=== PATIENT | male | born 1955 | race Caucasian/White ===

== ENCOUNTER 2024-05-27 14:30 | Inpatient (IN) ==
[2024-05-27] MEDS ORDERED: Dexamethasone IV 4 MG/ML VIAL 1 ml VIAL ONE (14:55)
[2024-05-27] MEDS: Dexamethasone IV 4 MG/ML VIAL 1 ml VIAL IM ONE (14:56)
[2024-05-27] MEDS ORDERED: Albuterol/Ipratropium NEB.SOL (2.5/0.5 MG) 3 ML NEB.SOLN ONE (14:57)
[2024-05-27 15:11] LABS: ABS Basophils 0.1 10^3/uL (0.0-0.1); ABS Eosinophils 0.5 10^3/uL (0.0-0.5); ABS Lymphocytes 1.3 10^3/uL (1.0-4.8); ABS Monocytes 1.3 10^3/uL (0.0-1.1); ABS Neutrophils 7.4 10^3/uL (1.5-7.6); ABS Nucleated RBC 0.01 10^3/ul; Eosinophil % 4.9 %; Hematocrit 44.2 % (38-53); Hemoglobin 15.1 g/dL (13.2-16.3); Mean Corpuscular Hemoglobin 32.2 pg (27-33); Mean Corpuscular Hgb Conc 34.3 g/dL (31-36); Mean Platelet Volume 6.1 fL (7.5-11.2); Nucleated Red Blood Cells % 0.1 %/100WBC (0.0-0.8); Platelet Count 336 10^3/uL (150-450); Red Cell Distribution Width 13.9 % (12-17); White Blood Count 10.5 10^3/uL (3.6-10.2)
[2024-05-27] MEDS: Albuterol/Ipratropium NEB.SOL (2.5/0.5 MG) 3 ML NEB.SOLN INH ONE (15:21)
[2024-05-27] MEDS: Furosemide 40 mg/4 ml IV VIAL IV SLOW PU ONE (15:23)
[2024-05-27 15:25] LABS: PO2 Arterial 235 mmHg (80-100)
[2024-05-27 15:37] LABS: PCO2 Arterial > 100 mmHg (35-45)
[2024-05-27 16:05] LABS: Albumin 4.8 g/dL (3.2-5.2); C Reactive Protein 6.94 mg/L (<8.01); Calcium 10.5 mg/dL (8.6-10.3); Creatinine, Serum 0.79 mg/dL (0.67-1.17); Globulin 2.4 g/dL (2-4); Potassium 4.4 mmol/L (3.5-5.0); Total Bilirubin 0.4 mg/dL (0.2-1.0); Total Protein 7.2 g/dL (6.4-8.9)
[2024-05-27 16:10] LABS: PO2 Arterial 140 mmHg (80-100)
[2024-05-27 16:19] LABS: Activated Partial Thrombo Time 30.7 seconds (26.0-38.0); INR 0.92 (0.85-1.14)
[2024-05-27 16:20] LABS: Urine Appearance Clear; Urine Bilirubin Negative (Negative); Urine Blood Negative (Negative); Urine Color Light-Yellow; Urine Glucose Negative (Negative); Urine Ketones Negative (Negative); Urine Nitrite Negative (Negative); Urine Protein Trace (Negative); Urine Specific Gravity 1.015 (1.002-1.030); Urine Urobilinogen Negative (Negative)
[2024-05-27 16:22] LABS: PCO2 Arterial > 100 mmHg (35-45)
[2024-05-27 16:44] LABS: High Sensitivity Troponin 1 Hr 49 pg/mL (<20)
[2024-05-27] MEDS: Iohexol 350 (CONTRAST) 500 ML MDV IV ONE (16:56)
[2024-05-27] MEDS ORDERED: Furosemide 40 mg/4 ml IV VIAL ONE (17:01)
[2024-05-27] MEDS: Furosemide 40 mg/4 ml IV VIAL IV ONE (17:04)
[2024-05-27] MEDS ORDERED: Etomidate 40 mg/20 ml (2 MG/ML) 20 ml VIAL (40 mg) ONE ×2 (17:29→17:46)
[2024-05-27] MEDS ORDERED: Succinylcholine 200 mg VIAL 20 mg/ml 10 ml VIAL (200 mg) ONE (17:30)
[2024-05-27] MEDS ORDERED: Rocuronium 50 mg VIAL 10 mg/ml 5 ml VIAL (50 mg) ONE ×3 (17:30→19:19)
[2024-05-27 17:37] LABS: PCO2 Arterial > 100 mmHg (35-45); PO2 Arterial 131 mmHg (80-100)
[2024-05-27] MEDS ORDERED: Norepinephrine 4 MG/250mL D5W 4,000 MCG/250 ML BAG IV ONE ×2 (17:37→20:02)
[2024-05-27] MEDS: Norepinephrine 4 MG/250mL NS 4,000 MCG/250 ML BAG IV SCH (17:40)
[2024-05-27] MEDS ORDERED: Midazolam 10 mg/10 ml VIAL 1 mg/ml 10 ml VIAL (10 mg) ONE (17:46)
[2024-05-27] MEDS: Midazolam 2 mg/2 ml VIAL 1 mg/ml 2 ml VIAL (2 mg) IV SLOW PU ONE ×5 (17:49→18:48)
[2024-05-27] MEDS ORDERED: EPINEPHrine SYR 0.1MG/ML 10 ml SYRINGE IV ONE ×2 (17:51→19:53)
[2024-05-27] MEDS: fentaNYL INFUSION 50 mcg/mL VL 2,500 MCG/50 ML VIAL IV SCH (18:38)
[2024-05-27] MEDS: Nitroglycerin 0.4 mg/hr PATCH (10 mg) TRANSDERM ONE (18:41)
[2024-05-27] MEDS: Rocuronium 50 mg VIAL 10 mg/ml 5 ml VIAL (50 mg) IV ONE (19:43)
[2024-05-27] MEDS: Midazolam 2 mg/2 ml VIAL 1 mg/ml 2 ml VIAL (2 mg) IV SLOW PU PRN (19:44)
[2024-05-27] MEDS: VASOPRESSIN IVPREMIX BTL 40 UNIT/100 ML BTL IV SCH (19:50)
[2024-05-27] MEDS ORDERED: Albuterol 2.5mg/3 ml (0.083%) NEB.SOLN INH ONE (19:57)
[2024-05-27] MEDS: Midazolam PREMIXBAG 1 MG/ML NS 100 ML IV SCH (20:06)
[2024-05-27] MEDS: Albuterol 2.5mg/3 ml (0.083%) NEB.SOLN INH SCH (20:13)
[2024-05-27] MEDS: Norepinephrine *QUAD STRENGTH* 16 mg/250 mL NS PREMIX (ICU ONLY) IV SCH (20:22)
[2024-05-27 20:50] LABS: Phosphorus 4.5 mg/dL (2.5-5.0)
[2024-05-27] MEDS: Magnesium Sulfate 2 gm BAG 2 GM/50 ML BAG IVPB ONE (20:51)
[2024-05-27] MEDS: Piperacillin/Tazobac 3.375 BAG 3.375 GM/100 ML BAG IV ONE (20:54)
[2024-05-27 21:39] LABS: PO2 Arterial 101 mmHg (80-100)
[2024-05-27 21:41] LABS: PCO2 Arterial 83 mmHg (35-45)
[2024-05-27] MEDS: Albuterol/Ipratropium NEB.SOL (2.5/0.5 MG) 3 ML NEB.SOLN INH PRN (22:08)
[2024-05-27] MEDS: Enoxaparin 40 MG/0.4 ML SYR SUBCUT SCH (22:43)
[2024-05-27] MEDS: Chlorhexidine MOUTHWASH 0.12% 15 ML UDC TOPICAL SCH (22:43)
[2024-05-27] MEDS: Famotidine IV 10 MG/ML 2 ml VIAL (20 mg) IV SLOW PU SCH (22:44)
[2024-05-27] MEDS: methylPREDNISolone SOD SUCC 40 mg/ml 1 ml VIAL IV SCH (22:44)
[2024-05-27] MEDS: Azithromycin 500 mg/250 ml NS 500 MG/250 ML BAG IVPB SCH (23:38)
[2024-05-28 00:01] LABS: PCO2 Arterial 71 mmHg (35-45); PO2 Arterial 104 mmHg (80-100)
[2024-05-28] MEDS: cefTRIAXone 1 gm/50 mL D5W 1 GM/50 ML BAG IV SCH (01:57)
[2024-05-28 07:46] LABS: PCO2 Arterial 61 mmHg (35-45); PO2 Arterial 128 mmHg (80-100)
[2024-05-28 08:07] LABS: Albumin 4.1 g/dL (3.2-5.2); Albumin/Globulin Ratio 1.6 (1-3); Calcium 9.8 mg/dL (8.6-10.3); Creatinine, Serum 0.95 mg/dL (0.67-1.17); Globulin 2.5 g/dL (2-4); Magnesium 2.3 mg/dL (1.9-2.7); Potassium 4.4 mmol/L (3.5-5.0); Total Bilirubin 0.5 mg/dL (0.2-1.0); Total Protein 6.6 g/dL (6.4-8.9); eGFR CKD-EPI 85.6 (>60)
[2024-05-28] MEDS ORDERED: Albuterol 2.5mg/3 ml (0.083%) NEB.SOLN INH PRN (08:38)
[2024-05-28 09:05] LABS: ABS Lymphocytes 0.4 10^3/uL (1.0-4.8); ABS Monocytes 0.7 10^3/uL (0.0-1.1); ABS Nucleated RBC 0.01 10^3/ul; Hemoglobin 13.9 g/dL (13.2-16.3); Lymphocyte % 6.2 %; Mean Corpuscular Hemoglobin 31.5 pg (27-33); Mean Corpuscular Hgb Conc 33.9 g/dL (31-36); Mean Platelet Volume 6.6 fL (7.5-11.2); Nucleated Red Blood Cells % 0.1 %/100WBC (0.0-0.8); Platelet Count 376 10^3/uL (150-450); Red Blood Count 4.41 10^6/uL (4.06-5.63); Red Cell Distribution Width 13.9 % (12-17); White Blood Count 6.1 10^3/uL (3.6-10.2)
[2024-05-28] MEDS: Albuterol/Ipratropium NEB.SOL (2.5/0.5 MG) 3 ML NEB.SOLN INH SCH (09:54)
[2024-05-28] MEDS: Propofol 10 mg/ml 100 ML BTL 1,000 MG/100 ML BTL IV SCH (10:14)
[2024-05-28] MEDS: Sulfur Hexaflouride MICROSPHR 25 MG VIAL IV PRN (10:58)
[2024-05-28] MEDS: Azithromycin 500 mg/250 ml NS 500 MG/250 ML BAG IVPB SCH (20:28)
[2024-05-29] MEDS: cefTRIAXone 1 GM Q24H (ADVAN) IVPB SCH (00:24)
[2024-05-29] MEDS ORDERED: cefTRIAXone 1 gm/50 mL D5W 1 GM/50 ML BAG IV SCH (01:00)
[2024-05-29 04:08] LABS: ABS Lymphocytes 0.4 10^3/uL (1.0-4.8); ABS Monocytes 0.9 10^3/uL (0.0-1.1); ABS Neutrophils 6.4 10^3/uL (1.5-7.6); Hematocrit 37.7 % (38-53); Hemoglobin 13.2 g/dL (13.2-16.3); Lymphocyte % 5.1 %; Mean Corpuscular Hemoglobin 32.1 pg (27-33); Mean Corpuscular Volume 91.5 fL (80-97); Mean Platelet Volume 6.1 fL (7.5-11.2); Platelet Count 313 10^3/uL (150-450); Red Blood Count 4.12 10^6/uL (4.06-5.63); White Blood Count 7.7 10^3/uL (3.6-10.2)
[2024-05-29 04:29] LABS: Albumin 3.7 g/dL (3.2-5.2); Albumin/Globulin Ratio 1.6 (1-3); Calcium 9.2 mg/dL (8.6-10.3); Creatinine, Serum 0.82 mg/dL (0.67-1.17); Globulin 2.3 g/dL (2-4); Magnesium 2.2 mg/dL (1.9-2.7); Potassium 4.4 mmol/L (3.5-5.0); Total Bilirubin 0.4 mg/dL (0.2-1.0); eGFR CKD-EPI 93.9 (>60)
[2024-05-29] MEDS: methylPREDNISolone SOD SUCC 40 mg/ml 1 ml VIAL IV SCH ×2 (09:32→18:17)
[2024-05-29] MEDS: Albuterol/Ipratropium NEB.SOL (2.5/0.5 MG) 3 ML NEB.SOLN INH SCH (11:09)
[2024-05-29] MEDS ORDERED: Lisinopril/HCTZ 20/25 TAB (NF) PO SCH (19:00)
[2024-05-30 03:57] LABS: ABS Lymphocytes 0.4 10^3/uL (1.0-4.8); ABS Monocytes 0.6 10^3/uL (0.0-1.1); ABS Neutrophils 8.2 10^3/uL (1.5-7.6); Hematocrit 36.8 % (38-53); Hemoglobin 12.6 g/dL (13.2-16.3); Lymphocyte % 4.1 %; Mean Corpuscular Hgb Conc 34.2 g/dL (31-36); Mean Corpuscular Volume 93.6 fL (80-97); Mean Platelet Volume 6.2 fL (7.5-11.2); Platelet Count 248 10^3/uL (150-450); Red Blood Count 3.93 10^6/uL (4.06-5.63); Red Cell Distribution Width 14.1 % (12-17); White Blood Count 9.2 10^3/uL (3.6-10.2)
[2024-05-30 04:07] LABS: ALT 28 U/L (7-52); Albumin/Globulin Ratio 1.7 (1-3); Alkaline Phosphatase 66 U/L (35-149); Anion Gap 5 mmol/L (2-16); Blood Urea Nitrogen 27 mg/dL (6-24); CO2 Carbon Dioxide 40 mmol/L (22-32); Calcium 9.4 mg/dL (8.6-10.3); Chloride 91 mmol/L (101-111); Creatinine, Serum 0.65 mg/dL (0.67-1.17); Globulin 2.4 g/dL (2-4); Glucose 120 mg/dL (70-100); Sodium 136 mmol/L (135-145); Total Bilirubin 0.6 mg/dL (0.2-1.0); Total Protein 6.4 g/dL (6.4-8.9); eGFR CKD-EPI 100.7 (>60)
[2024-05-30] MEDS: Albuterol/Ipratropium NEB.SOL (2.5/0.5 MG) 3 ML NEB.SOLN INH SCH ×2 (11:06→11:43)
[2024-05-31] MEDS: cefTRIAXone 1 gm/50 mL D5W 1 GM/50 ML BAG IV SCH (00:58)
[2024-05-31 05:09] LABS: ABS Lymphocytes 0.7 10^3/uL (1.0-4.8); ABS Neutrophils 6.9 10^3/uL (1.5-7.6); Hematocrit 41.4 % (38-53); Hemoglobin 14.1 g/dL (13.2-16.3); Lymphocyte % 8.5 %; Mean Corpuscular Hemoglobin 31.6 pg (27-33); Mean Corpuscular Hgb Conc 33.9 g/dL (31-36); Mean Corpuscular Volume 93.1 fL (80-97); Mean Platelet Volume 6.1 fL (7.5-11.2); Platelet Count 272 10^3/uL (150-450); Red Blood Count 4.45 10^6/uL (4.06-5.63); White Blood Count 8.6 10^3/uL (3.6-10.2)
[2024-05-31] MEDS: Albuterol/Ipratropium NEB.SOL (2.5/0.5 MG) 3 ML NEB.SOLN INH SCH (05:20)
[2024-05-31 05:49] LABS: Calcium 9.5 mg/dL (8.6-10.3); Creatinine, Serum 0.67 mg/dL (0.67-1.17); Magnesium 1.9 mg/dL (1.9-2.7); Phosphorus 4.4 mg/dL (2.5-5.0); Potassium 4.6 mmol/L (3.5-5.0); eGFR CKD-EPI 99.8 (>60)
[2024-05-31] MEDS: methylPREDNISolone SOD SUCC 40 mg/ml 1 ml VIAL IV SCH (08:15)
[2024-05-31] MEDS: Benzocaine/Menthol LOZ PO PRN (22:00)
[2024-06-01] MEDS: Albuterol/Ipratropium NEB.SOL (2.5/0.5 MG) 3 ML NEB.SOLN INH SCH (07:02)
[2024-06-01] MEDS ORDERED: BUDESONIDE INH SCH (11:30)
[2024-06-01] MEDS ORDERED: [UNRECOGNIZED DRUG - OTHER] INH SCH (11:30)
[2024-06-01] MEDS: Mometasone 220 MCG MDI INH SCH (19:24)
[2024-06-01] MEDS ORDERED: Albuterol/Ipratropium NEB.SOL (2.5/0.5 MG) 3 ML NEB.SOLN INH PRN (19:29)
[2024-06-02 05:44] LABS: ABS Eosinophils 0.1 10^3/uL (0.0-0.5); ABS Lymphocytes 1.5 10^3/uL (1.0-4.8); ABS Monocytes 0.9 10^3/uL (0.0-1.1); ABS Neutrophils 4.8 10^3/uL (1.5-7.6); Eosinophil % 1.8 %; Hematocrit 39.5 % (38-53); Hemoglobin 13.8 g/dL (13.2-16.3); Lymphocyte % 20.9 %; Mean Corpuscular Hemoglobin 32.1 pg (27-33); Mean Corpuscular Hgb Conc 34.8 g/dL (31-36); Mean Corpuscular Volume 92.2 fL (80-97); Mean Platelet Volume 6.1 fL (7.5-11.2); Nucleated Red Blood Cells % 0.1 %/100WBC (0.0-0.8); Platelet Count 257 10^3/uL (150-450); Red Blood Count 4.29 10^6/uL (4.06-5.63); Red Cell Distribution Width 13.7 % (12-17); White Blood Count 7.3 10^3/uL (3.6-10.2)
[2024-06-02 06:01] LABS: Calcium 9.7 mg/dL (8.6-10.3); Creatinine, Serum 0.66 mg/dL (0.67-1.17); Magnesium 1.8 mg/dL (1.9-2.7); Potassium 4.4 mmol/L (3.5-5.0); eGFR CKD-EPI 100.3 (>60)
[2024-06-02] MEDS: Magnesium Sulfate 2 gm BAG 2 GM/50 ML BAG IVPB ONE (09:31)
[2024-06-02 14:07] VITALS: BP 102/56
== END 2024-06-02 18:15 | disposition home or self-care (01) | DRG 208 ==
LOC: ED 14:30 → EDHOLD 18:44 → SUATTDRO 18:44 → ICU 19:29 → MED 05-31 17:09
PROVIDERS: ADMIT Student in an Organized Health Care Education/Training Program; ATTEND Internal Medicine